=== PATIENT | male | born 1995 | race African-American/Black ===

== ENCOUNTER 2017-05-29 06:17 | Emergency (ER) | payer MEDICAID ==
[~2017-05-29] VITALS: Ht 172.7 cm; Wt 66.7 kg
--- NOTE | 2017-05-29 06:24 | NUR ---
called pt in wr, no response
--- NOTE | 2017-05-29 06:38 | NUR ---
called pt in wr, no response
--- NOTE | 2017-05-29 07:50 | NUR ---
DR HARTMAN AT BEDSIDE FRO EVALUATION
[2017-05-29 08:26] LABS: BASOPHILS # (AUTO) 0.1 /CMM (0.0-0.2); BASOPHILS % (AUTO) 2.9 % (0.0-2.0); EOSINOPHILS % (AUTO) 0.9 % (0.0-6.0); HEMATOCRIT 43 % (39-51); HEMOGLOBIN 14.7 g/dL (13.5-17.5); LYMPHOCYTES # (AUTO) 1.1 /CMM (0.8-4.8); LYMPHOCYTES % (AUTO) 28.8 % (20.0-44.0); MEAN CORPUSCULAR HEMOGLOBIN 30 PG (26.0-33.0); MEAN CORPUSCULAR HGB CONC 34 g/dl (31.0-36.0); MEAN CORPUSCULAR VOLUME 89 fL (80-96); MONOCYTES # (AUTO) 0.5 /CMM (0.1-1.30); MONOCYTES % (AUTO) 11.5 % (2.0-12.0); NEUTROPHILS # (AUTO) 2.2 /CMM (1.8-8.9); NEUTROPHILS % (AUTO) 55.9 % (43.0-81.0); PLATELET COUNT (AUTO) 277 /CMM (150-450); RDW COEFFICIENT OF VARIATION 12.2 (11.5-15.0); RED BLOOD CELL COUNT(AUTO) 4.84 MIL/uL (4.5-6.0); WHITE BLOOD COUNT (AUTO) 3.9 K/uL (4.3-11.0)
[2017-05-29 08:42] LABS: CALCIUM, SERUM 9.3 mg/dL (8.5-10.1); CARBON DIOXIDE 28 mmol/L (21-32); CHLORIDE 103 mmol/L (98-107); CREATININE 0.8 mg/dL (0.6-1.3); GLUCOSE 90 mg/dL (74-106); POTASSIUM 3.7 mmol/L (3.5-5.1); SODIUM SERUM 137 mmol/L (136-145); UREA NITROGEN, BLOOD 14 mg/dL (7-18)
[2017-05-29 08:47] LABS: ALANINE AMINOTRANSFERASE 12 U/L (12-78); ALBUMIN 4.6 g/dL (3.4-5.0); ALCOHOL, BLOOD < 3 mg/dL (0-0); ALKALINE PHOSPHATASE 72 U/L (46-116); ASPARTATE AMINOTRANSFERASE 26 U/L (15-37); BILIRUBIN,DIRECT 0.2 mg/dL (0.0-0.2); BILIRUBIN,TOTAL 1.4 mg/dL (0.2-1.0); TOTAL PROTEIN, SERUM 8.5 g/dL (6.4-8.2)
[2017-05-29 09:00] LABS: SALICYLATE < 0.2 mg/dL (2.8-20.0)
[2017-05-29 09:01] LABS: ACETAMINOPHEN < 2 ug/ml (10-30)
--- NOTE | 2017-05-29 09:08 | NUR ---
Jeanne Middleton LCSW, ETA 1hr.
[2017-05-29 09:18] LABS: APPEARANCE,URINE CLEAR (CLEAR); BILIRUBIN,URINE 1+ (NEGATIVE); BLOOD, URINE NEGATIVE Ery/uL (NEGATIVE); COLOR,URINE YELLOW (YELLOW); KETONES,URINE 3+ (NEGATIVE); LEUKOCYTE ESTERASE ,URINE NEGATIVE (NEGATIVE); NITRITE, URINE NEGATIVE (NEGATIVE); PROTEIN,URINE NEGATIVE (NEGATIVE); UGLUCOSE NEGATIVE (NEGATIVE); UROBILINOGEN,URINE 0.2 EU/dL (0.2)
[2017-05-29] MEDS ORDERED: OLANZAPINE 5 MG TABLET ONE (09:26)
[2017-05-29] MEDS ORDERED: OLANZAPINE 5 MG TABLET PO ONE (09:30)
[2017-05-29 09:41] LABS: BACTERIA,URINE Rare /HPF (None Seen); RBC,URINE 0-2 /HPF (0-2); SQUAMOUS EPITHELIAL CELL,UR Few /HPF (None Seen); WBC,URINE 0-2 /HPF (0-3)
--- NOTE | 2017-05-29 12:20 | NUR ---
PT ACCEPTED TO [facility] [place], NUMBER TO GIVE REPORT IS [phone], ASK FOR SHARLA. NUMBER TO REACH SHIVA AT INTAKE IS [phone]
[2017-05-29 12:58] VITALS: BP 114/69
--- NOTE | 2017-05-29 13:03 | NUR ---
REPORT GIVEN TO KEARA AT [facility].
--- NOTE | 2017-05-29 13:49 | NUR ---
CALLED [facility] FOR TRANSPORT TO [facility], ETA 45 MIN, TRIP #[id number]
== END 2017-05-29 15:18 ==
LOC: ER 06:17
DX: F29 Unspecified psychosis not due to a substance or known physiological condition (principal); F20.9 Schizophrenia, unspecified
CPT/HCPCS: 36415; 80048; 80076; 80305; 80329; 81001; 85025; 99285; A4606; G0480 ×2; Z7610; 81000-TC